=== PATIENT | male | born 1990 | race Caucasian/White ===

== ENCOUNTER 2017-04-28 16:14 | Inpatient (IN) | payer MEDICAID ==
[~2017-04-28] VITALS: Ht 165.1 cm; Wt 69.9 kg
[2017-04-28] MEDS ORDERED: SODIUM CHLORIDE 0.9% 1,000 ML IV ONE ×2 (17:30→21:30)
[2017-04-28] MEDS ORDERED: LORAZEPAM 2MG/ML CPJ IV ONE ×2 (17:45→21:30)
[2017-04-28 17:56] LABS: BASOPHILS % 0.6 % (0.0-2.0); EOSINOPHILS % 3.3 % (0.0-5.0); HEMATOCRIT. 49.3 % (42.0-52.0); HEMOGLOBIN. 16.8 g/dL (14.0-18.0); MEAN CORPUSCULAR HEMOGLOBIN 34.3 pg (28.0-32.0); MEAN CORPUSCULAR VOLUME 100.7 fL (80.0-94.0); MEAN PLATELET VOLUME 7.8 fl (7.4-10.4); MONOCYTES % 8.8 % (2.0-8.0); NEUTROPHILS % 53.3 % (40.0-76.0); PLATELET 330 x1000/uL (130-400); RED BLOOD CELL COUNT 4.89 mill/uL (4.7-6.1); RED CELL DISTRIBUTION WIDTH 13.6 % (11.6-14.6)
[2017-04-28 18:01] LABS: INR 1.3; PARTIAL THROMBOPLASTIN TIME 28.1 sec (24.0-34.0); PROTHROMBIN TIME 13.1 sec
[2017-04-28 18:04] LABS: CARBON DIOXIDE 26 mEq/L (21-32); CHLORIDE 101 mEq/L (98-107)
[2017-04-28 18:10] LABS: TROPONIN I < 0.02 ng/mL (0.00-0.04)
[2017-04-28 18:11] LABS: ETHANOL BLOOD 344 mg/dL
[2017-04-28 19:19] LABS: AMMONIA 39 uMol/L (<32)
[2017-04-28 19:44] LABS: HEPATITIS B SURFACE ANTIGEN NEGATIVE
[2017-04-28 20:12] LABS: HEPATITIS B CORE AB IGM NEGATIVE
[2017-04-28 20:13] LABS: HEPATITIS A AB IGM NEGATIVE (NEGATIVE)
[2017-04-28] MEDS ORDERED: ONDANSETRON HCL 4MG/2ML VIAL IV ONE (21:30)
[2017-04-28] MEDS ORDERED: CYANOCOBALAMIN 1000MCG/ML VIAL IM ONE (23:30)
[2017-04-28] MEDS ORDERED: POTASSIUM CHLORIDE INJ 30 MEQ in DEXT 5%/0.9% NACL 1,000 ML IV ONE (23:30)
[2017-04-29] MEDS ORDERED: LORAZEPAM 2MG/ML CPJ IV NR (07:00)
[2017-04-29] MEDS: ONDANSETRON HCL 4MG/2ML VIAL IV PRN ×4 (07:16→21:05)
[2017-04-29] MEDS ORDERED: SODIUM CHLORIDE 0.9% 1,000 ML IV SCH (11:13)
[2017-04-29] MEDS ORDERED: CLONIDINE 0.1MG TABLET PO PRN (11:15)
[2017-04-29] MEDS ORDERED: IPRATROPIUM/ALBUTEROL 0.5-3(2.5)MG/3ML NEB INH PRN (11:15)
[2017-04-29] MEDS ORDERED: ACETAMINOPHEN 325MG TABLET PO PRN (11:15)
[2017-04-29] MEDS ORDERED: HYDROMORPHONE HCL/PF 2MG/ML CPJ IV PRN (11:15)
[2017-04-29] MEDS ORDERED: GUAIFENESIN 200MG/10ML SUGAR FREE UDC PO PRN (11:15)
[2017-04-29] MEDS ORDERED: DOCUSATE SODIUM 100MG CAPSULE PO PRN (11:15)
[2017-04-29] MEDS ORDERED: HYDROCODONE/ACETAMINOPHEN 5/325MG TABLET PO PRN (11:15)
[2017-04-29] MEDS ORDERED: MAGNESIUM/ALUMINUM HYDROXIDE/SIMETHICONE 30ML UDC PO PRN (11:15)
[2017-04-29] MEDS ORDERED: DIPHENHYDRAMINE 50MG/ML VIAL IV PRN (11:15)
[2017-04-29] MEDS ORDERED: MVI, ADULT NO.1 10 ML, FOLIC ACID 1 MG, THIAMINE HCL 100 MG in SODIUM CHLORIDE 0.9% 1,0... IV SCH ×4 (13:00)
[2017-04-29] MEDS: LORAZEPAM 2MG/ML CPJ IV PRN ×2 (13:18→18:57)
[2017-04-29] MEDS ORDERED: KETOROLAC 30MG/ML VIAL IV PRN (14:15)
[2017-04-30] MEDS: LORAZEPAM 2MG/ML CPJ IV PRN ×2 (01:28→09:15)
[2017-04-30 06:39] LABS: BASOPHILS % 0.6 % (0.0-2.0); EOSINOPHILS % 8.9 % (0.0-5.0); HEMOGLOBIN. 14.9 g/dL (14.0-18.0); LYMPHOCYTES % 16.9 % (20.0-50.0); MEAN CORPUSCULAR HEMOGLOBIN 34.3 pg (28.0-32.0); MEAN PLATELET VOLUME 8.5 fl (7.4-10.4); NEUTROPHILS % 66.6 % (40.0-76.0); PLATELET 238 x1000/uL (130-400); RED BLOOD CELL COUNT 4.36 mill/uL (4.7-6.1); RED CELL DISTRIBUTION WIDTH 13.5 % (11.6-14.6)
[2017-04-30 07:22] LABS: CARBON DIOXIDE 28 mEq/L (21-32); CHLORIDE 100 mEq/L (98-107)
[2017-04-30 09:14] VITALS: BP 118/60
[2017-04-30] MEDS: ONDANSETRON HCL 4MG/2ML VIAL IV PRN (09:15)
[2017-04-30] MEDS ORDERED: POTASSIUM CHLORIDE 20MEQ TABLET SR PO NR ×2 (10:45→15:00)
[2017-04-30] MEDS ORDERED: NEPVIT PO (12:45)
== END 2017-04-30 15:00 | disposition home or self-care (01) | DRG 282 ==
LOC: ER 17:03 → 6EST 23:29 → EDBEDREQ 04-29 00:56 → ENRESERV 04-29 08:03 → ER 04-29 09:24
PROVIDERS: ADMIT Internal Medicine; ATTEND Internal Medicine
DX: K85.90 Acute pancreatitis without necrosis or infection, unspecified (principal); K29.21 Alcoholic gastritis with bleeding; K70.9 Alcoholic liver disease, unspecified; K62.5 Hemorrhage of anus and rectum; E86.0 Dehydration; J45.909 Unspecified asthma, uncomplicated; W18.30XA Fall on same level, unspecified, initial encounter; F17.210 Nicotine dependence, cigarettes, uncomplicated; F10.229 Alcohol dependence with intoxication, unspecified; R74.0 Nonspecific elevation of levels of transaminase and lactic acid dehydrogenase [LDH]; S00.83XA Contusion of other part of head, initial encounter
CPT/HCPCS: 36415; 70450; 71010; 80053; 82140; 83036; 83690; 83880; 84484; 85025; 85610; 85730; 86705; 86709; 86803; 86850; 86870; 86900; 87340; 93005; 96361; 96374; 99285; G0482; J1170; J1885; J2060; J2405; J3411; J3420; J3480; J3490; J7030; J7040; J7042